=== PATIENT | male | born 1990 | race Hispanic/Latino ===

== ENCOUNTER 2018-08-03 23:49 | Emergency (ER) | payer BC, SELFPAY ==
[2018-08-04] MEDS ORDERED: Lidocaine 1% PF 5 ML VIAL ONE (00:21)
[2018-08-04] MEDS ORDERED: Adacel (T-DAP) 0.5 ML SYRINGE ONE (00:51)
== END 2018-08-04 01:06 | disposition home or self-care (01) ==
LOC: ERS 23:49
DX: S61.012A Laceration without foreign body of left thumb without damage to nail, initial encounter (principal); Z23 Encounter for immunization; W26.8XXA Contact with other sharp object(s), not elsewhere classified, initial encounter
CPT/HCPCS: 12001; 90471; 90715; J2001

== ENCOUNTER 2019-02-10 22:43 | Emergency (ER) | payer SELFPAY ==
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
== END 2019-02-11 00:18 | disposition home or self-care (01) ==
LOC: ERS 22:43
DX: S02.2XXA Fracture of nasal bones, initial encounter for closed fracture (principal); Y04.0XXA Assault by unarmed brawl or fight, initial encounter
CPT/HCPCS: 70450; 70486; 72125

== ENCOUNTER 2019-04-22 03:23 | Emergency (ER) | payer SELFPAY ==
[2019-04-22] MEDS ORDERED: Adacel (T-DAP) 0.5 ML SYRINGE ONE (04:03)
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
== END 2019-04-22 05:03 | disposition home or self-care (01) ==
LOC: ERS 03:23
DX: S01.01XA Laceration without foreign body of scalp, initial encounter (principal); S01.511A Laceration without foreign body of lip, initial encounter; Y04.8XXA Assault by other bodily force, initial encounter
CPT/HCPCS: 36415; 70450; 70486; 72125; 80307; 90471; 90715; 96360

== ENCOUNTER 2021-03-26 22:56 | Observation (INO) | payer SELFPAY ==
[2021-03-26 23:19] LABS: #Basophils 0.1 thou/uL (0.0-0.2); #Eosinphils 0.1 thou/uL (0.0-0.7); #Lymphocytes 5.3 thou/uL (1.20-3.40); #Monocytes 0.8 thou/uL (0.11-0.59); #Neutrophils 4.9 thou/uL (1.40-6.50); %Basophils 0.9 % (0.0-1.0); %Eosinophils 1.3 % (0.0-10.0); %Lymphocytes 47.6 % (21.0-51.0); %Monocytes 6.9 % (0.0-10.0); %Neutrophils 43.4 % (42.0-75.0); Hemoglobin 17.4 g/dL (14.0-18.0); Mean Corpuscular Hemoglobin 34.8 pg (27.0-31.0); Mean Corpuscular Volume 99.4 fL (78.0-98.0); Mean Platelet Volume 6.5 fL (7.4-10.4); Platelet Count 351 thou/uL (130-400); RBC Distribution Width 11.4 % (11.5-14.5); Red Blood Cell (RBC) Count 5.02 mill/uL (4.70-6.10); White Blood Cell (WBC) Count 11.2 thou/uL (4.8-10.8)
[2021-03-26 23:25] LABS: PTT 29.6 sec (22.9-36.1); Prothrombin Time 13.3 sec (12.0-14.7)
[2021-03-26 23:36] LABS: Acetaminophen Less than 6.0 mcg/mL (10.0-30.0); Alcohol 291 mg/dL (Less than 10); Salicylate Less than 8.0 mg/dL (15.0-30.0)
[2021-03-26 23:37] LABS: ALT (SGPT) 126 U/L (8-55); AST (SGOT) 103 U/L (5-34); Albumin 5.1 g/dL (3.5-5.0); Alkaline Phosphatase 74 U/L (40-110); Anion Gap 21 mmol/L (10-20); BUN (Urea Nitrogen) 6 mg/dL (8.9-20.6); Bilirubin, Total 0.8 mg/dL (0.2-1.2); CK (CPK) 1008 U/L (30-200); Calc. Creatinine Clearance 0 mL/min (70-130); Calcium 9.1 mg/dL (7.8-10.44); Carbon Dioxide 16 mmol/L (22-29); Chloride 109 mmol/L (98-107); Globulin 3.8 g/dL (2.4-3.5); Glucose 99 mg/dL (70-105); Potassium 4.2 mmol/L (3.5-5.1); Protein, Total 8.9 g/dL (6.0-8.3); Sodium 142 mmol/L (136-145)
[2021-03-27] MEDS ORDERED: Aspirin 325 MG TAB ONE (00:10)
[2021-03-27 03:08] LABS: Troponin I Less than 0.010 ng/mL (< 0.028)
[2021-03-27 05:23] LABS: Troponin I Less than 0.010 ng/mL (< 0.028)
[2021-03-27] MEDS ORDERED: hydrALAZINE 20 MG/ML VIAL SLOW IVP PRN (06:07)
[2021-03-27] MEDS ORDERED: Ondansetron ODT 4 MG TAB PO PRN (06:07)
[2021-03-27] MEDS ORDERED: Ondansetron PF 4 MG/2 ML Vial IVP PRN (06:07)
[2021-03-27] MEDS ORDERED: Acetaminophen 650 MG Suppository PR PRN (06:07)
[2021-03-27] MEDS ORDERED: Acetaminophen 325 MG TAB PO PRN (06:07)
[2021-03-27] MEDS ORDERED: Lorazepam 2 MG/ML VIAL IM PRN (06:11)
[2021-03-27] MEDS ORDERED: Lorazepam 1 MG TAB PO PRN (06:11)
[2021-03-27] MEDS ORDERED: Electrolyte Replacement Protocol 1 EACH FS SCH (06:15)
[2021-03-27] MEDS ORDERED: Thiamine HCl 200 MG/2 ML VIAL SLOW IVP SCH (06:30)
[2021-03-27] MEDS ORDERED: Sodium Chloride 0.9% 1,000 ML IV SCH (06:30)
[2021-03-27] MEDS: Lorazepam 1 MG TAB PO SCH ×2 (06:32→13:29)
[2021-03-27 07:12] LABS: #Basophils 0.1 thou/uL (0.0-0.2); #Eosinphils 0.1 thou/uL (0.0-0.7); #Lymphocytes 3.2 thou/uL (1.20-3.40); #Monocytes 0.6 thou/uL (0.11-0.59); #Neutrophils 3.9 thou/uL (1.40-6.50); %Basophils 1.2 % (0.0-1.0); %Eosinophils 1.5 % (0.0-10.0); %Lymphocytes 40.5 % (21.0-51.0); %Monocytes 7.4 % (0.0-10.0); %Neutrophils 49.4 % (42.0-75.0); Mean Corpuscular Hemoglobin 34.3 pg (27.0-31.0); Mean Platelet Volume 6.9 fL (7.4-10.4); Platelet Count 323 thou/uL (130-400); RBC Distribution Width 11.4 % (11.5-14.5); Red Blood Cell (RBC) Count 4.67 mill/uL (4.70-6.10); White Blood Cell (WBC) Count 7.9 thou/uL (4.8-10.8)
[2021-03-27 07:32] LABS: Anion Gap 18 mmol/L (10-20); BUN (Urea Nitrogen) 5 mg/dL (8.9-20.6); Calc. Creatinine Clearance 0 mL/min (70-130); Carbon Dioxide 20 mmol/L (22-29); Chloride 109 mmol/L (98-107); Glucose 78 mg/dL (70-105); Potassium 3.9 mmol/L (3.5-5.1); Sodium 143 mmol/L (136-145)
[2021-03-27 07:57] LABS: CK (CPK) 741 U/L (30-200)
[2021-03-27] MEDS ORDERED: Folic Acid 1 MG TAB ONE (08:51)
[2021-03-27] MEDS ORDERED: Thiamine 100 MG TAB ONE (08:51)
[2021-03-27] MEDS ORDERED: Aspirin Chewable 81 MG TAB ONE (08:51)
[2021-03-27] MEDS ORDERED: Enoxaparin Sodium 40 MG/0.4 ML SYRINGE ONE (08:51)
[2021-03-27] MEDS ORDERED: Multivit, Therapeutic 1 TAB PO SCH (09:00)
[2021-03-27] MEDS ORDERED: Aspirin 81 mg Enteric Coated Tablet PO SCH (09:00)
[2021-03-27] MEDS ORDERED: Zinc Sulfate 220 MG CAP PO SCH (09:00)
[2021-03-27] MEDS ORDERED: Enoxaparin Sodium 40 MG/0.4 ML SYRINGE SC SCH (09:00)
[2021-03-27] MEDS ORDERED: Cholecalciferol (Vitamin D3) 400 UNITS TAB PO SCH (09:00)
[2021-03-27] MEDS ORDERED: Folic Acid 1 MG TAB PO SCH (09:00)
[2021-03-27] MEDS ORDERED: Ascorbic Acid 500 mg Chewable Tablet PO SCH (09:00)
[2021-03-27] MEDS ORDERED: Zinc Sulfate 220 MG CAP ONE (10:08)
[2021-03-27] MEDS ORDERED: Ascorbic Acid 500 mg Chewable Tablet ONE (10:08)
[2021-03-27 12:29] LABS: SARS-CoV-2 PCR by NAA Not Detected (NotDetected)
[2021-03-27] MEDS ORDERED: Lorazepam 1 MG TAB ONE (13:22)
[2021-03-27 16:04] LABS: Hemoglobin A1c 5.6 % (4.0-6.0)
[2021-03-27 16:45] VITALS: BP 153/97
[2021-03-28] MEDS ORDERED: Lorazepam 1 MG TAB PO PRN (06:11)
[2021-03-29] MEDS ORDERED: Lorazepam 1 MG TAB PO PRN (06:11)
[2021-03-29] MEDS ORDERED: Lorazepam 0.5 MG TAB PO SCH (06:30)
[2021-03-30] MEDS ORDERED: Lorazepam 0.5 MG TAB PO PRN (06:11)
[2021-03-30] MEDS ORDERED: Thiamine 100 MG TAB PO SCH (06:30)
== END 2021-03-27 17:27 | disposition home or self-care (01) ==
LOC: ERS 22:56 → ERHOLD 03-27 00:34
PROVIDERS: ADMIT Student in an Organized Health Care Education/Training Program; ATTEND Internal Medicine
DX: G45.9 Transient cerebral ischemic attack, unspecified (principal); E22.1 Hyperprolactinemia; F10.20 Alcohol dependence, uncomplicated; F12.10 Cannabis abuse, uncomplicated; J34.1 Cyst and mucocele of nose and nasal sinus; Z86.16 Personal history of COVID-19; Z20.822 Contact with and (suspected) exposure to COVID-19; Y90.8 Blood alcohol level of 240 mg/100 ml or more
CPT/HCPCS: 36415; 70450; 70496; 70498; 70551; 71045; 80048; 80053; 80307; 82550; 83036; 84146; 84443; 84484; 85025; 85610; 85730; 93005; 96372; 96374; G0378; J1650; J3411; J7050; U0003; U0005

== ENCOUNTER 2021-11-17 14:28 | Emergency (ER) | payer SELFPAY ==
[2021-11-17] MEDS ORDERED: methylPREDNISolone Sod Succ/PF 125 MG/2 ML VIAL ONE (16:15)
[2021-11-17] MEDS ORDERED: Famotidine 20 MG TAB ONE (16:15)
[2021-11-17] MEDS ORDERED: diphenhydrAMINE 25 MG CAP ONE (16:15)
== END 2021-11-17 16:30 | disposition home or self-care (01) ==
LOC: ERS 14:28
DX: L25.9 Unspecified contact dermatitis, unspecified cause (principal)
CPT/HCPCS: 96372; 99282; J2930